=== PATIENT | female | born 1985 | race Caucasian/White ===

== ENCOUNTER 2018-04-28 02:15 | Emergency (ER) | payer SELFPAY, OTHER | END 2018-04-28 02:46 | disposition home or self-care (01) | LOC: FTE 02:15 | DX: S00.03XA Contusion of scalp, initial encounter (principal); W01.198A Fall on same level from slipping, tripping and stumbling with subsequent striking against other object, initial encounter; Y92.89 Other specified places as the place of occurrence of the external cause | CPT/HCPCS: 99283 ==